=== PATIENT | female | born 1975 | race African-American/Black ===

== ENCOUNTER → 2025-05-08 | Outpatient (CLI) | payer BC ==
--- NOTE | 2025-05-08 21:15 | HMCIMG ---
EXAM: CT Abdomen and Pelvis Without IV Contrast. CLINICAL HISTORY: Calculus of kidney. TECHNIQUE: Axial computed tomography images of the abdomen and pelvis were obtained without intravenous contrast. CONTRAST: No IV contrast. COMPARISON: None provided. FINDINGS: LUNG BASES: Lung bases are clear. No pleural effusion or consolidation. LIVER: Liver measures 16 cm with decreased attenuation consistent with fatty infiltration. No focal lesion. GALLBLADDER AND BILE DUCTS: Gallbladder normal. No ductal dilatation or calculus. PANCREAS, SPLEEN, AND ADRENALS: Appear unremarkable. KIDNEYS, URETERS, AND BLADDER: Right lower-pole renal calculus 0.2 cm and left mid-pole renal calculus 0.4 cm identified. No hydronephrosis, hydroureter, or perinephric stranding. Bladder unremarkable. BOWEL: Normal caliber of stomach and small bowel. Mild fecal impaction in large bowel. Chronic uncomplicated diverticulosis present. Appendix normal. PERITONEUM: No free air or fluid. REPRODUCTIVE ORGANS: Uterus bulky, 8 ??? 4.9 ??? 5.4 cm, lobulated contour suggesting fibroid changes. No adnexal mass. VASCULATURE: Normal caliber aorta and major branches. ABDOMINAL WALL: Umbilical hernia with 2.8 cm fascial defect containing fat, without bowel herniation. BONES: No acute or destructive osseous lesion. Mild degenerative change. IMPRESSION: * Bilateral renal calculi???right 0.2 cm, left 0.4 cm???without obstruction or hydronephrosis, corresponding to the clinical concern of renal stones. * Hepatomegaly with fatty liver change. * Mild fecal impaction and chronic uncomplicated diverticulosis. * Umbilical hernia with 2.8 cm fascial defect containing fat, uncomplicated. * Bulky uterus with lobulated contour (8 ??? 4.9 ??? 5.4 cm), likely fibroid uterus???recommend pelvic ultrasound or MRI for further characterization. /[place]
== END | disposition home or self-care (01) ==
LOC: RAH 11:21
PROVIDERS: ATTEND Internal Medicine Nephrology
DX: K76.0 Fatty (change of) liver, not elsewhere classified (principal); N20.0 Calculus of kidney; K57.30 Diverticulosis of large intestine without perforation or abscess without bleeding; K42.9 Umbilical hernia without obstruction or gangrene; K56.41 Fecal impaction
CPT/HCPCS: 74176